=== PATIENT | male | born 1985 | race Caucasian/White ===

== ENCOUNTER → 2017-06-25 | Outpatient (CLI) | payer OTHER | LOC: FIMAGING 07:08 | PROVIDERS: ATTEND Family Medicine | DX: R51 Headache (principal) ==

== ENCOUNTER → 2017-08-30 | Outpatient (CLI) | payer OTHER | LOC: FIMAGING 07:34 | PROVIDERS: ATTEND Family Medicine | DX: R10.9 Unspecified abdominal pain (principal); M54.5 Low back pain ==

== ENCOUNTER 2019-04-18 12:06 | Emergency (ER) | payer OTHER | END 2019-04-18 14:45 | disposition home or self-care (01) | LOC: CED 12:06 ==